=== PATIENT | female | born 1960 | race Caucasian/White ===

== ENCOUNTER 2017-08-02 03:37 | Emergency (ER) | payer OTHER, MEDICARE ==
[~2017-08-02] VITALS: Ht 162.6 cm; Wt 76.0 kg
[2017-08-02 03:40] VITALS: BP 121/81
[2017-08-02] MEDS ORDERED: LINA145C PO (04:34)
[2017-08-02] MEDS ORDERED: OXYC-307 PO (04:35)
[2017-08-02] MEDS ORDERED: ENOX60SY4 SC (04:35)
[2017-08-02 04:47] LABS: HEMATOCRIT 37.8 % (34.6-47.8); HEMOGLOBIN 12.9 g/dL (11.7-16.4); WHITE BLOOD COUNT 6.9 x10^3/uL (3.4-10)
[2017-08-02 04:56] LABS: ASPARTATE AMINO TRANSFERASE 11 U/L (15-37); BLOOD UREA NITROGEN 17 mg/dL (7-18)
[2017-08-02] MEDS ORDERED: FAMOTIDINE 20 MG/2 ML IVP ONE (05:00)
[2017-08-02] MEDS ORDERED: ONDANSETRON 2MG/ML, 2ML IVPush ONE (05:00)
[2017-08-02] MEDS ORDERED: HYDROmorphone 1 MG/ML, 1ML IVPush PRN (05:00)
[2017-08-02] MEDS ORDERED: SODIUM CHLORIDE FLUSH 10ML SYR IVF ONE (05:00)
[2017-08-02] MEDS ORDERED: HYDROmorphone 2 MG/ML, 1ML ONE (05:01)
[2017-08-02] MEDS ORDERED: ONDANSETRON 2MG/ML, 2ML ONE (05:01)
[2017-08-02] MEDS ORDERED: FAMOTIDINE 20 MG/2 ML ONE (05:01)
[2017-08-02 05:13] LABS: IS PT STATUS REG ER OR PRE ER? YES
[2017-08-02] MEDS ORDERED: MAALOX/HYOSCYAMINE/LIDOCAINE 45 ML BTL PO ONE (06:30)
[2017-08-02] MEDS ORDERED: MAALOX/HYOSCYAMINE/LIDOCAINE 45 ML BTL ONE (06:45)
== END 2017-08-02 04:54 | disposition home or self-care (01) ==
LOC: ED 04:47
DX: K29.50 Unspecified chronic gastritis without bleeding (principal); K21.9 Gastro-esophageal reflux disease without esophagitis; G89.29 Other chronic pain; G62.9 Polyneuropathy, unspecified; I25.2 Old myocardial infarction; Z90.49 Acquired absence of other specified parts of digestive tract; Z98.890 Other specified postprocedural states
CPT/HCPCS: 36415; 71010; 74176; 80053; 81003; 83690; 84484; 85025; 93005; 96374; 96375; 99285; J1170; J2405; S0028